=== PATIENT | male | born 1990 | race Native Hawaiian/Other Pacific Islander ===

== ENCOUNTER 2018-11-27 22:59 | Emergency (ER) | payer SELFPAY ==
[2018-11-27 23:16] VITALS: BP 118/78; PULSE 89; RESP 18; TEMP 99.1; O2SAT 97
--- NOTE | 2018-11-27 23:57 | C.PDOC ---
History Of Present Illness 28-year-old male presents to the emergency department with complaints of pain and decreased hearing to the right ear. Patient states that his girlfriend was cleaning his right ear with a wax remover upon which he began to experience the symptoms. Time Seen by Provider: 11/27/18 23:42 Chief Complaint (Nursing): ENT Problem History Per: Patient History/Exam Limitations: None Onset/Duration Of Symptoms: Hrs Current Symptoms Are (Timing): Still Present Quality (Ear): Pain W/Touch, Other (swelling) Past Medical History Reviewed: Historical Data, Nursing Documentation, Vital Signs Vital Signs: Last Vital Signs Temp 99.1 F 11/27/18 23:13 Pulse 89 11/27/18 23:13 Resp 18 11/27/18 23:13 BP 118/78 11/27/18 23:13 Pulse Ox 97 11/27/18 23:13 Primary Care Provider: FAMILY PROVIDER,NO - Medical History PMH: No Chronic Diseases Surgical History: No Surg Hx Family History: States: No Known Family Hx - Social History Hx Alcohol Use: No Hx Substance Use: No - Immunization History Hx Tetanus Toxoid Vaccination: No Hx Influenza Vaccination: No Hx Pneumococcal Vaccination: No Review Of Systems Constitutional: Negative for: Fever, Chills, Weakness Eyes: Negative for: Pain ENT: Positive for: Ear Pain. Negative for: Nose Discharge, Nose Congestion, Throat Pain Cardiovascular: Negative for: Chest Pain Respiratory: Negative for: Cough, Shortness of Breath Gastrointestinal: Negative for: Nausea, Vomiting, Abdominal Pain, Constipation Genitourinary: Negative for: Dysuria, Frequency, Hematuria Neurological: Negative for: Weakness, Numbness Physical Exam - Physical Exam Additional Physical Exam Comments: General: Well, non-toxic, NAD Skin: normal, warm, no rash Head: Normocephalic, Atraumatic Eyes: Normal Inspection (no scleral icterus), PERRL, EOMI Ears: Perforated right ear drum. No bleeding, no drainage, decreased hearing on right side. Neck: supple, normal ROM Chest: Symmetrical Respiratory: No accessory muscle use, other (Normal inspiratory effort) Neuro: Oriented x3, Cranial nerves grossly intact ED Course And Treatment O2 Sat by Pulse Oximetry: 97 (RA) Pulse Ox Interpretation: Normal Medical Decision Making Medical Decision Making: Patient given suspension drops and referred to ENT. Disposition Counseled Patient/Family Regarding: Diagnosis, Need For Followup, Rx Given - Disposition Referrals: Non [facility] Provider, [Primary Care Provider] - Jorge Arcos MD [Staff Provider] - Disposition: HOME/ ROUTINE Disposition Time: 23:48 Condition: STABLE Prescriptions: Ciprofloxacin/Dexamethasone [Ciprodex Otic] 2 drop OD BID #1 bottle Instructions: Ruptured Eardrum (DC) Forms: [facility] (Czech), General Discharge Instructions - Clinical Impression Clinical Impression: Perforated right tympanic membrane on examination - PA / [employer] / Resident Statement MD/DO has reviewed & agrees with the documentation as recorded. - Scribe Statement The provider has reviewed the documentation as recorded by the Scribe (Samuel Guo) All medical record entries made by the Scribe were at my direction and personally dictated by me. I have reviewed the chart and agree that the record accurately reflects my personal performance of the history, physical exam, medical decision making, and the department course for this patient. I have also personally directed, reviewed, and agree with the discharge instructions and disposition.
== END 2018-11-28 00:15 | disposition home or self-care (01) ==
LOC: SUPCPDRO 22:59 → C.ER 22:59
DX: H72.91 Unspecified perforation of tympanic membrane, right ear (principal)